=== PATIENT | female | born 1960 | race African-American/Black ===

== ENCOUNTER 2016-11-22 09:35 | Day surgery (SDC) | payer MEDICARE ==
[2016-11-22 10:19] LABS: HEMATOCRIT 38.4 % (36.0-47.0); HEMOGLOBIN 12.2 g/dL (12.0-15.5); HGB HCT DIFFERENCE -1.8; MEAN CORPUSCULAR HEMOGLOBIN 27.7 pg (27.0-33.4); MEAN CORPUSCULAR HGB CONC 31.8 g/dL (32.0-36.0); MEAN CORPUSCULAR VOLUME 87 fl (80-97); RED CELL DISTRIBUTION WIDTH 15.6 % (11.5-14.0); WHITE BLOOD COUNT 13.2 10^3/uL (4.0-10.5)
[2016-11-22 10:26] LABS: PROTHROMBIN TIME 12.8 SEC (11.4-15.4)
[2016-11-22 10:42] LABS: ANION GAP 18 (5-19); BLOOD UREA NITROGEN 31 mg/dL (7-20); CALCIUM 10.1 mg/dL (8.4-10.2); CARBON DIOXIDE 24 mmol/L (22-30); CHLORIDE 100 mmol/L (98-107); CREATININE RESULT 5.07 mg/dL (0.52-1.25); GLUCOSE 129 mg/dL (75-110); POTASSIUM 4.8 mmol/L (3.6-5.0); SODIUM 141.8 mmol/L (137-145)
[2016-11-22] MEDS ORDERED: HEPARIN SOD (PORCINE) 5,000 UNIT/ML 1 ML SYRINGE ONE (11:27)
[2016-11-22] MEDS ORDERED: MIDAZOLAM 2 MG/2 ML INJ ONE (11:27)
[2016-11-22] MEDS ORDERED: FENTANYL CITRATE INJ/PF 100 MCG/2 ML AMPUL ONE (11:27)
[2016-11-22] MEDS ORDERED: LIDOCAINE 0.5% INJ-PF (5 MG/ML) 50 ML SDV ONE (11:31)
--- NOTE | 2016-11-22 13:05 | PDOC DISCHARGE SUMMARY ---
Discharge Summary (SDC) - Discharge Final Diagnosis: #1 malfunctioning arteriovenous fistula, right upper extremity, transposed basilic vein fistula. #2 end-stage renal disease on hemodialysis. #3 HIV positive. #4 history of tuberculosis. Date of Surgery: 11/22/16 Discharge Date: 11/22/16 Condition: Fair Treatment or Instructions: #1 discharge home after ACU criteria met. #2 may have Percocet for pain up to 4 only while in diameter. #3 follow-up in office by appointment in about 1 week. #4 continue medications per medication reconciliation sheet. #5 dressing may be removed in hemodialysis. Discharge Diet: Other (Comments) - Renal Respiratory Treatments at Home: Deep Breathing/Coughing Discharge Activity: Activity As Tolerated Report the Following to Your Physician Immediately: Unusual Bleeding
--- NOTE | 2016-11-22 13:10 | Operative Report ---
Operative Report DATE OF SURGERY: 11/22/16 PREOPERATIVE DIAGNOSIS: #1 malfunctioning arteriovenous fistula, right upper extremity, transposed basilic vein fistula. #2 end-stage renal disease on hemodialysis. #3 HIV positive. #4 history of tuberculosis. POSTOPERATIVE DIAGNOSIS: #1 malfunctioning arteriovenous fistula, right upper extremity, transposed basilic vein fistula. Secondary to long segment subclavian stenosis. #2 end-stage renal disease on hemodialysis. #3 HIV positive. #4 history of tuberculosis. OPERATION: #1 needle introduction into fistula. #2 angioplasty central. #3 angiogram and interpretation. SURGEON: SABRINA RAMIREZ ARTIFICIAL CHERRY MAKER: none ANESTHESIA: Moderate Sedation TISSUE REMOVED OR ALTERED: Not Applicable. COMPLICATIONS: None ESTIMATED BLOOD LOSS: 5 mL. INTRAOPERATIVE FINDINGS: Upper well-founded right arm transposed basilic vein fistula. The culprit is an area extending from the axillary to the subclavian innominate junction with several areas of stenosis. Most prominently at the subclavian to central junction and also at the upper axillary vein. The stenosis resolved to satisfaction with the exception of the one at the subclavian superior vena cava junction. This is of concern. Rotation up to 9 mm results in pain in the patient. Elimination of the waist however there is rebound. This fistula improved considerably after angioplasty becoming appropriately softer. Given the propensity to recurrence particularly in the subclavian system there is a real concern that this fistula may shut down in the near future. Unfortunately she does not have a lot of other options. To be considered is stenting in the subclavian system. PROCEDURE: PROCEDURE: After verifying the procedure and having obtained informed consent, the patient's right arm was prepared with Chlorhexidine and draped out with sterile linen. Local anesthesia infiltrated. Percutaneous access into the fistula ,[ antegrade], obtained about [6 cm] from the arteriovenous anastomosis using a micro puncture needle followed by micro puncture wire and then a micro puncture catheter. Angiogram demonstrated the aforementioned findings. Angioplasty was elected. A 0.035 North wire was inserted, and over this, a 7 Bengali short introducer was placed, this was followed by a [9] angioplasty balloon . Angioplasty was Done first at the subclavian to superior vena cava junction inflating up to 12 anant for 2 minutes. The balloon catheter withdrawn and angioplasty done in the subclavian system up to the most peripheral area of stenosis at about the axillary subclavian junction. Elimination of waist was accomplished. Completion angiogram demonstrated fairly satisfactory resolution with the exception of the area at the subclavian to superior vena cava junction.. Inflating up to 12 atmospheres for a minute at a time.]. Completion angiogram demonstrated [acceptable result]. The instrumentation was now withdrawn over hand pressure for 15 minutes. Dressings applied, procedure concluded. Exposure time: 1.8 minutes. Radiation: 85 kiana per centimeter squared. Contrast: 25 mL of Isovue-M 300, low osmolality. DICTATING PHYSICIAN: SABRINA NEWELL M.D. cc: SABRINA NEWELL M.D. ([id number]) >>
[2016-11-22] MEDS ORDERED: OXYCODONE-ACETAMINOPHEN 5-325 MG TABLET PO ONE (14:00)
[2016-11-22 14:18] VITALS: BP 132/82
== END 2016-11-22 14:15 | disposition home or self-care (01) ==
LOC: CCL 09:35
PROVIDERS: ATTEND Surgery
PROC: 05793DZ Dilation of Right Brachial Vein with Intraluminal Device, Percutaneous Approach (ICD-10-PCS; principal; 2016-11-22)
DX: T82.858A Stenosis of other vascular prosthetic devices, implants and grafts, initial encounter (principal); Y83.2 Surgical operation with anastomosis, bypass or graft as the cause of abnormal reaction of the patient, or of later complication, without mention of misadventure at the time of the procedure; I12.0 Hypertensive chronic kidney disease with stage 5 chronic kidney disease or end stage renal disease; N18.6 End stage renal disease; A15.0 Tuberculosis of lung; Z21 Asymptomatic human immunodeficiency virus [HIV] infection status; Z99.2 Dependence on renal dialysis; Z88.8 Allergy status to other drugs, medicaments and biological substances; Z79.899 Other long term (current) drug therapy; Z79.82 Long term (current) use of aspirin
CPT/HCPCS: 36415; 85027; 85610; 85730; 80048; 36907; 36902; C1752; Q9967; C1769; J2250; J1644 ×2; J3010; J3490

== ENCOUNTER → 2017-01-10 | Outpatient (CLI) | payer MEDICARE | LOC: OD 11:52 | PROVIDERS: ATTEND Physician Assistant | DX: R11.2 Nausea with vomiting, unspecified (principal) | CPT/HCPCS: 74022 ==

== ENCOUNTER → 2017-02-12 | Outpatient (CLI) | payer MEDICARE, MEDICAID ==
--- NOTE | 2017-02-13 08:10 | WOMENS IMAGING REPORT ---
EXAM DESCRIPTION: BILAT SCREENING MAMMO W/CAD COMPLETED DATE/TIME: 02/12/2017 11:18 am REASON FOR STUDY: ROUTINE BILATERAL SCREENING;Z12.31 Z12.31 ENCNTR SCREEN MAMMOGRAM FOR MALIGNANT N EOPLASM OF JACKSON COMPARISON: 2011 to 2015 TECHNIQUE: Standard craniocaudal and mediolateral oblique views of each breast recorded using Adviqoa l acquisition. LIMITATIONS: None. FINDINGS: No masses, calcifications or architectural distortion. No areas of suspicion. Read with the assistance of CAD. .[facility] - R2 Cenova Version 1.3 .[facility] - R2 Cenova Version 1.3 .[facility] - R2 Cenova Version 2.4 .[facility] [place] [facility] - R2 Cenova Version 2.4 .[facility] - R2 Ice Cream Machine Operator Version 9.2 IMPRESSION: NORMAL MAMMOGRAM. BIRADS 1. BREAST DENSITY: b. There are scattered areas of fibroglandular density. BIRAD: 1 NEGATIVE RECOMMENDATION: ROUTINE SCREENING COMMENT: The patient has been notified of the results by letter per MQSA requirements. Additional no tification policies are in place for contacting patient with suspicious or incomplete findings. Quality ID #225: The [employer] recommends an annual screening mammogram for women aged 40 years or over. This facility utilizes a reminder system to ensure that all patients receive reminder letters, and/or direct phone calls for appointments. This includes reminders for routine scr eening mammograms, diagnostic mammograms, or other Breast Imaging Interventions when appropriate. Th is patient will be placed in the appropriate reminder system. The [employer] (ACR) has developed recommendations for screening MRI of the breast s in certain patient populations, to be used in conjunction with mammography. Breast MRI surveillanc e may be appropriate for women with more than 20% lifetime risk of developing breast cancer as deter mined by genetic testing, significant family history of the disease, or history of mantle radiation f or Hodgkins Disease. ACR Practice Guidelines 2008. TECHNICAL DOCUMENTATION: FINDING NUMBER: (1) ASSESSMENT: (1) JOB ID: [id number] [employer]- All Rights Reserved
== END ==
LOC: WI 13:57
PROVIDERS: ATTEND Physician Assistant
DX: Z12.31 Encounter for screening mammogram for malignant neoplasm of breast (principal)
CPT/HCPCS: 77067; G0202

== ENCOUNTER → 2017-02-26 | Outpatient (CLI) | payer MEDICARE, MEDICAID ==
--- NOTE | 2017-02-26 10:36 | RADIOLOGY REPORT (SQ) ---
EXAM DESCRIPTION: CT ABD/PELVIS NO ORAL OR IV COMPLETED DATE/TIME: 02/26/2017 9:09 am REASON FOR STUDY: VOMITING, UNSPECIFIED R11.10 VOMITING, UNSPECIFIED COMPARISON: 03/29/2016. TECHNIQUE: CT scan of the abdomen and pelvis performed without intravenous or oral contrast. Images reviewed with lung, soft tissue, and bone windows. Reconstructed coronal and sagittal MPR images revi ewed. All images stored on PACS. All CT scanners at this facility use dose modulation, iterative reconstruction, and/or weight based d osing when appropriate to reduce radiation dose to as low as reasonably achievable (ALARA). [facility]: Dose Right [facility]: CareDose [facility]: Dose Right [facility]: Teradose 4D [facility]: Smart Technologies RADIATION DOSE: Up-to-date CT equipment and radiation dose reduction techniques were employed. CTDIv ol: 15.2 mGy. DLP: 810 mGy-cm.mGy. LIMITATIONS: None. FINDINGS: LOWER CHEST: No significant findings. No nodules or infiltrates. NON-CONTRASTED LIVER, SPLEEN, ADRENALS: Evaluation limited by lack of IV contrast. Multiple punctate calcified granulomas in the spleen. No identified significant masses. PANCREAS: No masses. No peripancreatic inflammatory changes. GALLBLADDER: No identified stones by CT criteria. No inflammatory changes to suggest cholecystitis. RIGHT KIDNEY AND URETER: Generally atrophic appearance. Multiple small cortical cysts, unchanged. N o suspicious masses. Assessment limited by lack of IV contrast. No significant calcifications. No hydronephrosis or hydroureter. LEFT KIDNEY AND URETER: Generally atrophic appearance. Multiple small cortical cysts, unchanged. No suspicious masses. Assessment limited by lack of IV contrast. Small calculi in the lower pole. N o hydronephrosis or hydroureter. AORTA AND RETROPERITONEUM: No aneurysm. No retroperitoneal masses or adenopathy. Again see numerous calcified lymph nodes. BOWEL AND PERITONEAL CAVITY: Numerous diverticuli throughout the colon. No obvious masses or inflamm atory changes. No free fluid. Again seen are numerous calcifications in the mesenteric, likely calci fied lymph nodes. APPENDIX: Not visualized. PELVIS, BLADDER, AND ABDOMINAL WALL:No abnormal masses. No free fluid. Bladder normal. BONES: No significant findings. OTHER: No other significant finding. IMPRESSION: 1. EXTENSIVE COLONIC DIVERTICULOSIS. NO CT FINDINGS OF ACUTE DIVERTICULITIS. 2. SMALL NONOBSTRUCTING CALYCEAL CALCULI IN THE LEFT KIDNEY. 3. GENERALLY ATROPHIC APPEARANCE OF BOTH KIDNEYS. MULTIPLE CORTICAL CYSTS IN BOTH KIDNEYS APPEAR TO BE UNCHANGED. 4. NUMEROUS CALCIFIED GRANULOMAS IN THE SPLEEN. AGAIN SEEN ARE EXTENSIVE CALCIFICATIONS IN THE RETRO PERITONEAL LYMPH NODES AND MESENTERIC LYMPH NODES, LIKELY DUE TO PRIOR GRANULOMATOUS DISEASE. 5. NO OTHER SIGNIFICANT OR ACUTE PROCESS IN THE ABDOMEN OR PELVIS. TECHNICAL DOCUMENTATION: JOB ID: [id number] Quality ID # [id number]: Final reports with documentation of one or more dose reduction techniques (e.g., Au tomated exposure control, adjustment of the mA and/or kV according to patient size, use of iterative reconstruction technique) 2010 [employer]- All Rights Reserved
== END ==
LOC: RAD 09:00
PROVIDERS: ATTEND Physician Assistant
DX: R11.0 Nausea (principal); K21.9 Gastro-esophageal reflux disease without esophagitis
CPT/HCPCS: 74176

== ENCOUNTER 2018-01-21 09:03 | Day surgery (SDC) | payer MEDICARE ==
[2018-01-21] MEDS ORDERED: PROPOFOL INJ 200 MG/20 ML VIAL IV ONE (12:10)
[2018-01-21] MEDS ORDERED: LIDOCAINE 2% INJ-PF (20 MG/ML) 10 ML AMPUL ONE (12:10)
[2018-01-21] MEDS ORDERED: MIDAZOLAM 2 MG/2 ML INJ ONE (12:10)
[2018-01-21] MEDS ORDERED: DIPHENHYDRAMINE HCL 50 MG/ML VIAL IV PRN (12:30)
[2018-01-21] MEDS ORDERED: ONDANSETRON HCL INJ/PF 4 MG/2 ML SDV IV PRN (12:30)
[2018-01-21] MEDS ORDERED: FENTANYL CITRATE INJ/PF 100 MCG/2 ML AMPUL IV PRN ×3 (12:30)
[2018-01-21] MEDS ORDERED: PROMETHAZINE HCL INJ 25 MG/1 ML VIAL IV PRN (12:30)
[2018-01-21] MEDS ORDERED: MEPERIDINE HCL/PF INJ 25 MG/1 ML DISP.SYRIN IV PRN (12:30)
[2018-01-21] MEDS ORDERED: ACETAMINOPHEN 325 MG TABLET PO PRN (13:31)
[2018-01-21] MEDS ORDERED: PROMETHAZINE HCL INJ 25 MG/1 ML VIAL INJ PRN (13:32)
[2018-01-21] MEDS ORDERED: SIMETHICONE 80 MG TAB.CHEW PO PRN (13:32)
[2018-01-21 14:23] VITALS: BP 134/86
--- NOTE | 2018-01-22 08:53 | Operative Report ---
Operative Report DATE OF SURGERY: 01/21/18 Operative Report: The risks, benefits and alternatives of the procedure including risks of bleeding, perforation requiring surgery are explained to the patient in detail and informed consent is obtained. Patient is brought back to the operating room and placed in a left, lateral decubital position. Timeout was called. Propofol medications administered. A rectal examination is done which did not reveal any masses, tears or fissures. An Olympus videoscope was inserted into the patient's rectum. The scope was then carefully advanced all the way to the cecum. The cecum was identified by the usual anatomical landmarks including the ileocecal valve as well as the appendiceal office. Photodocumentation is obtained. The scope was then sequentially pulled back via the various segments of the colon including the ascending colon, hepatic flexure, transverse colon, splenic flexure, descending colon and finally into the rectosigmoid portions of the colon. Retroflexion maneuvers performed. PREOPERATIVE DIAGNOSIS: Left lower quadrant pain, possible diverticulitis in the past. POSTOPERATIVE DIAGNOSIS: Left side colon Diverticular stricture. However did allow passage of the scope. Right side diverticulosis. Internal hemorrhoids OPERATION: Colonoscopy with biopsy SURGEON: WAYNE SESAY ANESTHESIA: LMAC TISSUE REMOVED OR ALTERED: As noted above. COMPLICATIONS: None. ESTIMATED BLOOD LOSS: None. INTRAOPERATIVE FINDINGS: As noted above. PROCEDURE: Patient tolerated procedure well. No immediate postprocedure comp occasions are noted. Patient discharged in good condition. Discharge date 01/21/2018. Discharge diet: Regular. Discharge activity: Regular. 2-3 week follow-up to discuss findings. Patient is instructed to call the office or proceed to the emergency room should there be any further problems or questions. We will wait on pathology.
== END 2018-01-21 14:15 | disposition home or self-care (01) ==
LOC: OROUT 09:03
PROVIDERS: ATTEND Internal Medicine Gastroenterology
DX: K57.30 Diverticulosis of large intestine without perforation or abscess without bleeding (principal); K64.8 Other hemorrhoids; Z21 Asymptomatic human immunodeficiency virus [HIV] infection status; I12.9 Hypertensive chronic kidney disease with stage 1 through stage 4 chronic kidney disease, or unspecified chronic kidney disease; N18.9 Chronic kidney disease, unspecified; B19.20 Unspecified viral hepatitis C without hepatic coma; Z99.2 Dependence on renal dialysis; E78.5 Hyperlipidemia, unspecified; Z79.899 Other long term (current) drug therapy; Z79.82 Long term (current) use of aspirin; Z88.8 Allergy status to other drugs, medicaments and biological substances
CPT/HCPCS: 45380; 36415; 84132; 88305 ×2; J2250; J2550; J2704; J3490; 811

== ENCOUNTER 2019-02-06 06:42 | Emergency (ER) | payer MEDICARE ==
[2019-02-06] MEDS ORDERED: LORAZEPAM INJ 2 MG/1 ML VIAL IV ONE (09:16)
[2019-02-06] MEDS ORDERED: ONDANSETRON HCL INJ/PF 4 MG/2 ML SDV IV ONE (09:17)
--- NOTE | 2019-02-06 09:45 | RADIOLOGY REPORT (SQ) ---
EXAM DESCRIPTION: CHEST SINGLE VIEW COMPLETED DATE/TIME: 02/06/2019 9:33 am REASON FOR STUDY: N,V,D COMPARISON: Chest films 02/14/2016, 11/06/2010 EXAM PARAMETERS: NUMBER OF VIEWS: One view. TECHNIQUE: Single frontal radiographic view of the chest acquired. RADIATION DOSE: NA LIMITATIONS: None. FINDINGS: LUNGS AND PLEURA: No opacities, masses or pneumothorax. No pleural effusion. MEDIASTINUM AND HILAR STRUCTURES: No masses. Contour normal. HEART AND VASCULAR STRUCTURES: Stable mild cardiomegaly BONES: No acute findings. HARDWARE: Surgical clips along the left upper arm for dialysis access. Right arm clips, right neck s urgical clips, subclavian and jugular vascular stents for right arm dialysis access OTHER: No other significant finding. IMPRESSION: Mild cardiomegaly. No acute infiltrates TECHNICAL DOCUMENTATION: JOB ID: [id number] [employer]- All Rights Reserved Reading location - IP/workstation name: [email or web address]
[2019-02-06] MEDS ORDERED: ONDANSETRON HCL INJ/PF 4 MG/2 ML SDV IM ONE (09:47)
[2019-02-06] MEDS ORDERED: LORAZEPAM INJ 2 MG/1 ML VIAL IM ONE (09:47)
--- NOTE | 2019-02-06 10:02 | ER Document Report ---
Entered by NAMRATA ROGERS SCRIBE 02/06/19 0927 Acting as scribe for:ESHA ZAPIEN MD ED General - General Chief Complaint: Vomiting Stated Complaint: VOMITING Time Seen by Provider: 02/06/19 08:59 Primary Care Provider: ZAC MYERS PA [PHYSICIAN MANAGER OF HOUSEKEEPING] - Follow up as needed Mode of Arrival: Ambulatory Information source: Patient Notes: Patient is a 59 year old female with HTN, ESRD (MWF dialysis), HIV, anxiety presents to the emergency department complaining of nausea, vomiting, diarrhea and throat swelling onset this morning. Patient states she ate 4 green grapes from a lady while at dialysis. She states she proceeded to vomit and have 3 episodes of diarrhea while waiting to be dialyzed. She states she then felt as if her lips and throat were swelling and proceeded to call EMS. She states she was not dialyzed. Patient reports she feels she may have panic attacks every time she goes to dialysis because she is often very nauseous when she arrives. Patient also mentions having a burning sensation in her upper abdomen after consuming foods recently. Patient states she had an angioplasty on her shunt at [place] yesterday. She states when she came home she only consumed "mild wings". Patient is prescribed daily Percocet, meclizine, and Xanax. Patient's PCP is Dr. Kelly. Water Resource Engineer: Dr. Cullen. TRAVEL OUTSIDE OF THE [place] IN LAST 30 DAYS: No - Related Data Allergies/Adverse Reactions: amlodipine [Amlodipine] Allergy (Severe, Verified 02/06/19 06:43) tongue swells, face itches Iodinated Contrast- Oral and IV Dye [IV Dye, Iodine Containing] Allergy (Severe, Verified 02/06/19 06:43) Anaphylaxis iodine [Iodine] Allergy (Severe, Verified 02/06/19 06:43) Anaphylaxis SEAFOOD Allergy (Severe, Uncoded 02/06/19 06:43) Anaphylaxis Past Medical History - General Information source: Patient - Social History Smoking Status: Current Some Day Smoker Cigarette use (# per day): Yes Chew tobacco use (# tins/day): No Smoking Education Provided: No Frequency of alcohol use: None Family History: Reviewed & Not Pertinent - Past Medical History Cardiac Medical History: Reports: Hx Hypertension Pulmonary Medical History: Reports: Hx Pneumonia, Hx Tuberculosis Neurological Medical History: Reports: Hx Cerebrovascular Accident - "mini stroke" Renal/ Medical History: Reports: Hx End Stage Renal Disease GI Medical History: Musculoskeletal Medical History: Infectious Medical History: Reports: Hx HIV Past Surgical History: Reports: Hx Hysterectomy, Hx Orthopedic Surgery - left leg - Immunizations Hx Diphtheria, Pertussis, Tetanus Vaccination: Yes Hx Pneumococcal Vaccination: 09/16/09 Review of Systems - Review of Systems Constitutional: No symptoms reported EENT: No symptoms reported Cardiovascular: No symptoms reported Respiratory: No symptoms reported Gastrointestinal: See HPI, Diarrhea, Nausea, Vomiting Genitourinary: No symptoms reported Female Genitourinary: No symptoms reported Musculoskeletal: No symptoms reported Skin: No symptoms reported Hematologic/Lymphatic: No symptoms reported Neurological/Psychological: No symptoms reported -: Yes All other systems reviewed and negative Physical Exam - Vital signs Vitals: Temp Pulse Resp BP Pulse Ox 97.5 F 80 18 105/48 L 100 02/06/19 07:11 02/06/19 07:11 02/06/19 07:11 02/06/19 07:11 02/06/19 07:11 - Notes Notes: GENERAL: Alert, interacts well. No acute distress. HEAD: Normocephalic, atraumatic. EYES: Pupils equal, round, and reactive to light. Extraocular movements intact. ENT: Oral mucosa dry, tongue midline. NECK: Full range of motion. Supple. Trachea midline. LUNGS: Clear to auscultation bilaterally, no wheezes, rales, or rhonchi. No respiratory distress. HEART: Regular rate and rhythm. No murmurs, gallops, or rubs. ABDOMEN: Soft, non-tender. Non-distended. Bowel sounds present in all 4 quadrants. No guarding, rigidity, or rebound. EXTREMITIES: Moves all 4 extremities spontaneously. No edema, radial and dorsalis pedis pulses 2/4 bilaterally. No cyanosis. NEUROLOGICAL: Alert and oriented x3. Normal speech. PSYCH: Normal affect, normal mood. SKIN: Warm, dry, normal turgor. No rashes or lesions noted. Course - Re-evaluation Re-evalutation: 02/06/19 15:14 I discussed patient's case with Dr. Delacruz when we finally got her chemistries back. It turns out, that they had called Dr. Delacruz earlier today when the patient was first sent to the emergency room and have already scheduled her for dialysis tomorrow. At this time the patient has been resting comfortably, she has had no further nausea or vomiting since she got the Zofran injection. She will be discharged with a prescription for Zofran and will go by dialysis on the way home to find out what time she is scheduled to be there tomorrow. - Vital Signs Vital signs: Temp Pulse Resp BP Pulse Ox 97.2 F 70 19 94/58 L 99 02/06/19 13:19 02/06/19 13:19 02/06/19 13:19 02/06/19 13:19 02/06/19 13:19 - Laboratory Result Diagrams: 02/06/19 10:09 02/06/19 13:34 Laboratory results interpreted by me: 02/06/19 02/06/19 10:09 13:34 WBC 13.4 H MCHC 31.8 L RDW 17.3 H Absolute Neutrophils 8.9 H BUN 77 H Creatinine 8.76 H Est GFR ( Amer) 6 L Est GFR (Non-Af Amer) 5 L Calcium 8.3 L Alkaline Phosphatase 289 H Creatine Kinase 643 H Discharge - Discharge Clinical Impression: Nausea, vomiting and diarrhea, ESRD on hemodialysis Condition: Stable Disposition: HOME, SELF-CARE Additional Instructions: Gastroenteritis You most likely have gastroenteritis. This is an irritation of the stomach and intestinal tract. It's usually caused by a virus, but can also be caused by bacteria, toxins that cause food poisoning, or excessive alcohol intake. Symptoms may include fever, painful abdominal cramps, nausea, vomiting, and diar dorothy. Gastroenteritis rarely requires medication. It goes away by itself. Use good handwashing so you don't spread germs. Wash underwear in very hot water. If symptoms are severe, talk to the doctor. Call your physician if blood appears in your vomitus or stool, if vomiting lasts longer than 24 hours, if the abdominal pain worsens or becomes localized to one area, or if you develop high fever. Take the Zofran as prescribed for nausea if needed. Go by dialysis on your way home to find out what time you are supposed to be there tomorrow to get your dialysis. RETURN TO THE EMERGENCY ROOM IF ANY NEW OR WORSENING SYMPTOMS. Prescriptions: Ondansetron [Zofran Odt 4 mg Tablet] 1 - 2 tab PO Q4H #15 tab.rapdis Referrals: ZAC MYERS PA [PHYSICIAN MANAGER OF HOUSEKEEPING] - Follow up as needed Scribe Attestation: 02/06/19 10:04 I personally performed the services described in the documentation, reviewed and edited the documentation which was dictated to the scribe in my presence, and it accurately records my words and actions. I personally performed the services described in the documentation, reviewed and edited the documentation which was dictated to the scribe in my presence, and it accurately records my words and actions.
[2019-02-06 10:20] LABS: ABSOLUTE BASOPHILS # (AUTO) 0.1 10^3/uL (0.0-0.2); ABSOLUTE LYMPHOCYTES (AUTO) 3.6 10^3/uL (0.5-4.7); ABSOLUTE MONOCYTES (AUTO) 0.8 10^3/uL (0.1-1.4); ABSOLUTE NEUT (AUTO) 8.9 10^3/uL (1.7-8.2); BASOPHILS % (AUTO) 0.5 % (0-2); EOSINOPHILS % (AUTO) 0.1 % (0-6); HEMATOCRIT 44.1 % (36.0-47.0); LYMPHOCYTES % (AUTO) 26.8 % (13-45); MEAN CORPUSCULAR HEMOGLOBIN 27.9 pg (27.0-33.4); MEAN CORPUSCULAR HGB CONC 31.8 g/dL (32.0-36.0); MEAN CORPUSCULAR VOLUME 88 fl (80-97); MONOCYTES % (AUTO) 5.9 % (3-13); PLATELET COUNT 187 10^3/uL (150-450); RED BLOOD COUNT 5.03 10^6/uL (3.72-5.28); RED CELL DISTRIBUTION WIDTH 17.3 % (11.5-14.0); SEGMENTED NEUTROPHILS % (AUTO) 66.7 % (42-78); TOTAL CELLS COUNTED % (AUTO) 100 %; WHITE BLOOD COUNT 13.4 10^3/uL (4.0-10.5)
[2019-02-06 14:00] LABS: ALANINE AMINOTRANSFERASE 21 U/L (9-52); ALBUMIN 3.9 g/dL (3.5-5.0); ALKALINE PHOSPHATASE 289 U/L (38-126); ANION GAP 17 (5-19); ASPARTATE AMINO TRANSFERASE 21 U/L (14-36); BILIRUBIN,DIRECT 0.4 mg/dL (0.0-0.4); BILIRUBIN,TOTAL 0.5 mg/dL (0.2-1.3); BLOOD UREA NITROGEN 77 mg/dL (7-20); CALCIUM 8.3 mg/dL (8.4-10.2); CARBON DIOXIDE 22 mmol/L (22-30); CHLORIDE 101 mmol/L (98-107); CREATINE KINASE 643 U/L (30-135); GLUCOSE 98 mg/dL (75-110); POTASSIUM 4.8 mmol/L (3.6-5.0); SODIUM 139.6 mmol/L (137-145); TOTAL PROTEIN 6.6 g/dL (6.3-8.2)
[2019-02-06 14:11] LABS: CREATINE KINASE MB 1.03 ng/mL (<4.55); TROPONIN I 0.027 ng/mL
[2019-02-06 15:53] VITALS: BP 89/65
== END 2019-02-06 15:53 | disposition home or self-care (01) ==
LOC: ER 06:42
DX: R11.2 Nausea with vomiting, unspecified (principal); R19.7 Diarrhea, unspecified; I12.0 Hypertensive chronic kidney disease with stage 5 chronic kidney disease or end stage renal disease; N18.6 End stage renal disease; Z99.2 Dependence on renal dialysis; B20 Human immunodeficiency virus [HIV] disease
CPT/HCPCS: 99283; 96372; 36415; 82553; 82550; 85025; 80053; 84484; 71045; J2060; J2405

== ENCOUNTER → 2020-07-28 | Outpatient (CLI) | payer MEDICAID, MEDICARE ==
--- NOTE | 2020-07-28 10:45 | WOMENS IMAGING REPORT ---
EXAM DESCRIPTION: 3D SCREENING MAMMO BILAT IMAGES COMPLETED DATE/TIME: 07/28/2020 10:13 am REASON FOR STUDY: Z12.31 ENCNTR SCREEN MAMMOGRAM FOR MALIGNANT NEOPLASM OF BREAST Z12.31 ENCNTR SCR EEN MAMMOGRAM FOR MALIGNANT NEOPLASM OF [place] COMPARISON: Priors back to 2011. EXAM PARAMETERS: Views: Standard craniocaudal and mediolateral oblique views of each breast recorded using digital acquisition and breast tomosynthesis. Read with the assistance of CAD. .[facility] - Control Systems Drafting Officer Version 9.2 LIMITATIONS: None. FINDINGS: No suspicious masses, suspicious calcifications or architectural distortion. No areas of c oncern. IMPRESSION: NEGATIVE MAMMOGRAM. BIRADS 1. BREAST DENSITY: b. There are scattered areas of fibroglandular density. BIRAD: ASSESSMENT: 1 NEGATIVE RECOMMENDATION: ROUTINE SCREENING COMMENT: The patient has been notified of the results by letter per MQSA requirements. Additional no tification policies are in place for contacting patient with suspicious or incomplete findings. Quality ID #225: The [employer] recommends an annual screening mammogram for women aged 40 years or over. This facility utilizes a reminder system to ensure that all patients receive reminder letters, and/or direct phone calls for appointments. This includes reminders for routine scr eening mammograms, diagnostic mammograms, or other Breast Imaging Interventions when appropriate. Th is patient will be placed in the appropriate reminder system. TECHNICAL DOCUMENTATION: FINDING NUMBER: (1) ASSESSMENT: (1) JOB ID: [id number] 2010 [employer]- All Rights Reserved Reading location - IP/workstation name: [email or web address]
--- OUTSIDE RECORDS SUMMARY | 2020-07-29 15:14 | XMS REPORT ---
:1960 [facility] [place] [address] [place] [id number] Care Team Providers Name Role Phone Unavailable Unavailable Unavailable Allergies, Adverse Reactions, Alerts Allergy Name Allergy Status Severity Reaction(s) Onset Inactive Treat ing Comments Type Date Date Clinician GABAPENTIN Drug Active U Tachycardia 2017-12 allergy -27 00:00:0 0 Medications This patient has no known medications. Problems This patient has no known problems. Procedures This patient has no known procedures. Results Test Description Test Time Test Comments Text Results Atomic Results Result Comments POTASSIUM\S\L 2018-01-21 09:29:00 Test Item Value Reference Range Comments POTASSIUM (test code = K) 3.8 mmol/L 3.6-5.0 Social History This patient has no known social history. Vital Signs This patient has no known vital signs.
== END ==
LOC: WI 09:45
PROVIDERS: ATTEND Family Medicine
DX: Z12.31 Encounter for screening mammogram for malignant neoplasm of breast (principal)
CPT/HCPCS: 77063; 77067